=== PATIENT | male | born 1985 | race Caucasian/White ===

== ENCOUNTER 2021-05-07 10:58 | Emergency (ER) | payer SELFPAY ==
[~2021-05-07] VITALS: Ht 172.7 cm; Wt 70.3 kg
[2021-05-07] MEDS ORDERED: KETOROLAC TROMETHAMINE 60 MG/2 ML VIAL IM ONE (11:30)
== END 2021-05-07 13:23 | disposition home or self-care (01) ==
LOC: ER 11:05
DX: M62.830 Muscle spasm of back (principal); F17.210 Nicotine dependence, cigarettes, uncomplicated
CPT/HCPCS: 99282; J1885

== ENCOUNTER 2021-11-05 12:50 | Emergency (ER) | payer SELFPAY ==
[~2021-11-05] VITALS: Ht 172.7 cm; Wt 70.3 kg
[2021-11-05] MEDS ORDERED: ANAPROX DS550 MG PO (14:16)
[2021-11-05] MEDS ORDERED: PREDNISONE50 MG PO (14:16)
== END 2021-11-05 14:49 | disposition home or self-care (01) ==
LOC: ER 13:11
DX: M25.531 Pain in right wrist (principal); M65.88 Other synovitis and tenosynovitis, other site
CPT/HCPCS: 99283